=== PATIENT | female | born 1945 | race Caucasian/White ===

== ENCOUNTER → 2016-12-30 | Outpatient (CLI) | payer MEDICARE ==
[~2016-12-30] MED LIST: ALBU90AE INH; AMLO10TA2 PO; AMLO5TAB2 PO; ASPI-1085 PO; CLOP75TA PO; GADOBUTROL 10mMol/10ml INJECTION IV ONE; HYDR-3995 PO; HYDR-4078 PO; LEVO150T4 PO; LISI-621 PO; METF10002 PO; METO-482 PO; MINO100C43 PO; OMEP20CA10 PO; PARO40TA PO; SALINE FLUSH 10ml SYRINGE ONE; SIMV20TA6 PO
--- NOTE | 2016-12-31 09:00 | DI ---
Indication: ITS.REASON: HEADACHE PROCEDURE: MRI BRAIN W/WO CONTRAST: Encounter: Initial Comparison: Head CT dated December 26, 2005 Technique: Multiplanar, multisequence, MR imaging of the head with and without contrast was acquired. MRA imaging of the head without contrast was acquired. Maximum intensity projection (MIP) reformatted images were produced. 3-dimensional volume rendered imaging of the [place] was performed by the technologist on a dedicated workstation. Contrast: 8.5 mL of Gadavist Findings: MRI head: Moderate generalized atrophy. The ventricles are of normal size, shape, and contour for the patient's age. There are small nonspecific punctate areas of T2-weighted and T2 FLAIR weighted signal abnormality in the deep frontoparietal white matter that most likely represent small vessel ischemic disease. This is of a degree that is considered to be normal for the patient's age. The brain stem, cerebellum, and cerebral hemispheres otherwise have a normal morphologic appearance as well as MR signal intensity on all pulse sequences. Following intravenous administration of contrast, no areas of abnormal enhancement are evident. There are no areas of restricted diffusion on diffusion weighted imaging to suggest an acute infarct. There is no evidence of an intracranial mass lesion, intracranial hemorrhage, or hydrocephalus. The visualized portions of the orbits, calvarium, and skull base demonstrate no significant abnormality. Moderate left maxillary sinus mucosal thickening. MRA head: The intracranial portions of the vertebral arteries, internal carotid arteries, and their major branches show no significant stenosis or other vascular anomaly. No aneurysms or vascular malformations are evident. Impression: 1. MRI head: Slightly advanced atrophy for age otherwise unremarkable exam. 2. MRA head: No evidence of aneurysm or flow-limiting arterial stenosis. .
== END ==
LOC: IMA 13:47
PROVIDERS: ATTEND Nurse Practitioner
DX: R51 Headache (principal); H53.2 Diplopia; H05.822 Myopathy of extraocular muscles, left orbit; G31.89 Other specified degenerative diseases of nervous system
CPT/HCPCS: 70544; 70553; A9585